=== PATIENT | female | born 1985 | race Caucasian/White ===

== ENCOUNTER 2024-02-23 13:06 | Observation (INO) | payer OTHER ==
--- NOTE | 2024-02-23 13:23 | ED ---
General Adult HPI - General Chief complaint: Overdose Stated complaint: overdose Time Seen by Provider: 02/23/24 13:10 Source: patient, EMS, RN notes reviewed, old records reviewed Mode of arrival: EMS Limitations: altered mental status - History of Present Illness Initial comments: This is a 39-year-old female who presents to the emergency department stating she took a Klonopin 0.5 mg because she was anxious going to rehab. Patient states she is going to rehab for rehabilitation on benzos and Adderall patient states she was not trying to commit suicide she is not depressed and she does not want to hurt herself. Patient states she was just anxious show she kept taking Klonopin on the bus ride to [place] patient states that was at about 2 hours ago patient denies any drinking today patient denies any other drug use. Patient Nuys chest pain palpitations difficulty breathing or shortness of breath. Patient Nuys any abdominal pain patient has nausea vomiting diarrhea. Patient Nuys any headache. Patient states she just extremely tired - Related Data Home Medications Medication Instructions Recorded Confirmed Benztropine Mesylate [Cogentin] 0.5 mg PO BID 02/23/24 02/23/24 DULoxetine HCL [Cymbalta] 30 mg PO DAILY 02/23/24 02/23/24 DULoxetine HCL [Cymbalta] 60 mg PO HS 02/23/24 02/23/24 Ferrous Sulfate [Feosol] 325 mg PO DAILY 02/23/24 02/23/24 Gabapentin [Gralise] 600 mg PO TID 02/23/24 02/23/24 Nicotine 21Mg/24Hr Patch [Habitrol] 1 patch TRANSDERM DAILY 02/23/24 02/23/24 QUEtiapine FUMARATE [SEROquel] 600 mg PO HS 02/23/24 02/23/24 Semaglutide [Wegovy] 0.25 mg SQ Q7D 02/23/24 02/23/24 cloNIDine HCL [Catapres] 0.1 mg PO TID 02/23/24 02/23/24 clonazePAM [KlonoPIN] 0.5 mg PO TID PRN 02/23/24 02/23/24 hydrOXYzine pamoate [Vistaril] 25 mg PO Q8H PRN 02/23/24 02/23/24 Allergies Allergy/AdvReac Type Severity Reaction Status Date / Time No Known Allergies Allergy Verified 02/23/24 15:26 Review of Systems ROS Statement: Those systems with pertinent positive or pertinent negative responses have been documented in the HPI. ROS Other: All systems not noted in ROS Statement are negative. Past Medical History Past Medical History: Unable to Obtain Past Surgical History: Unable to Obtain Past Psychological History: Unable to Obtain Smoking Status: Vaper Past Alcohol Use History: Abuse, Heavy Past Drug Use History: Prescription Drug Abuse General Exam - General Exam Comments Initial Comments: GENERAL: Patient is well-developed and well-nourished. Patient is nontoxic and well- hydrated and is in no acute distress. Patient is very tired but easily arousable ENT: Neck is soft and supple. No significant lymphadenopathy is noted. Oropharynx is clear. Moist mucous membranes. Neck has full range of motion without eliciting any pain. EYES: The sclera were anicteric and conjunctiva were pink and moist. Extraocular movements were intact and pupils were equal round and reactive to light. Eyelids were unremarkable. PULMONARY: Unlabored respirations. Good breath sounds bilaterally. No audible rales rhonchi or wheezing was noted. CARDIOVASCULAR: There is a regular rate and rhythm without any murmurs gallops or rubs. ABDOMEN: Soft and nontender with normal bowel sounds. SKIN: Skin is clear with no lesions or rashes and otherwise unremarkable. NEUROLOGIC: Patient is alert and oriented x3. Cranial nerves II through XII are grossly intact. Motor and sensory are also intact. Normal speech, volume and content. Symmetrical smile. MUSCULOSKELETAL: Normal extremities with adequate strength and full range of motion. LYMPHATICS: No significant lymphadenopathy is noted PSYCHIATRIC: Normal psychiatric evaluation. Denies suicidal homicidal ideations Limitations: altered mental status Course Vital Signs 02/23/24 13:08 Temperature 97.5 F L Pulse Rate 72 Respiratory 17 Rate Blood Pressure 150/80 O2 Sat by Pulse 97 Oximetry Medical Decision Making - Medical Decision Making Was pt. sent in by a medical professional or institution (, JAMAL, MANUFACTURING TEACHER, urgent care, hospital, or fci...) When possible be specific @ -Patient was sent in by [facility] Did you speak to anyone other than the patient for history (EMS, parent, family, police, friend...)? What history was obtained from this source @ -No Did you review nursing and triage notes (agree or disagree)? Why? @ -I reviewed and agree with nursing and triage notes Were old charts reviewed (outside hosp., previous admission, EMS record, old EKG, old radiological studies, urgent care reports/EKG's, fci records)? Report findings @ -No old charts were reviewed Differential Diagnosis? @ -Klonopin overdose, methadone overdose, unknown overdose, this is not an all- inclusive list EKG interpreted by me (3pts min.). @ -As above X-rays interpreted by me (1pt min.). @ -None done CT interpreted by me (1pt min.). @ -None done U/S interpreted by me (1pt. min.). @ -None done What testing was considered but not performed or refused? (CT, X-rays, U/S, labs)? Why? @ -None What meds were considered but not given or refused? Why? @ -None Did you discuss the management of the patient with other professionals (professionals i.e. , PA, MANUFACTURING TEACHER, lab, RT, psych nurse, high school social science teacher, metal patternmaker, teacher, supply officer, human services case manager)? Give summary @ -Spoke with sound physicians they agreed to admit the patient admit the patient wrote admitting orders Was smoking cessation discussed for >3mins.? @ -No Was critical care preformed (if so, how long)? @ -No Were there social determinants of health that impacted care today? How? (Homelessness, low income, unemployed, alcoholism, drug addiction, transportation, low edu. Level, literacy, decrease access to med. care, fci, rehab)? @ -No Was there de-escalation of care discussed even if they declined (Discuss DNR or withdrawal of care, Hospice)? DNR status @ -No What co-morbidities impacted this encounter? (DM, HTN, Smoking, COPD, CAD, Cancer, CVA, ARF, Chemo, Hep., AIDS, mental health diagnosis, sleep apnea, morbid obesity)? @ -None Was patient admitted / discharged? Hospital course, mention meds given and route, prescriptions, significant lab abnormalities, going to OR and other pertinent info. @ -Patient's drug screen came back clean of amphetamines and benzos which she states is the reason she was going to rehab. Patient had methadone on board which she now admits to having methadone every morning but she denies abusing it. Patient states she took 8.5 mg Klonopin prior to her arrival at [facility]. [facility] does not want the patient coming back to their facility. Patient denies any suicidal ideations Undiagnosed new problem with uncertain prognosis? @ -No Drug Therapy requiring intensive monitoring for toxicity (Heparin, Nitro, Insulin, Cardizem)? @ -No Were any procedures done? @ -No Diagnosis/symptom? @ -Overdose Klonopin Acute, or Chronic, or Acute on Chronic? @ -Acute Uncomplicated (without systemic symptoms) or Complicated (systemic symptoms)? @ -Complicated Side effects of treatment? @ -No Exacerbation, Progression, or Severe Exacerbation? @ -No Poses a threat to life or bodily function? How? (Chest pain, [place], [place], pneumonia, PE, COPD, DKA, ARF, appy, cholecystitis, CVA, Diverticulitis, Homicidal, Suicidal, threat to staff... and all critical care pts) @ -This could lead to hypoxia and endorgan dysfunction - Lab Data Lab Results 02/23/24 Range/Units 13:34 Urine Opiates Screen Not Detected (NotDetected) Ur Oxycodone Screen Not Detected (NotDetected) Urine Methadone Screen Detected H (NotDetected) Ur Barbiturates Screen Not Detected (NotDetected) U Tricyclic Antidepress Detected H (NotDetected) Ur Phencyclidine Scrn Not Detected (NotDetected) Ur Amphetamines Screen Not Detected (NotDetected) U Methamphetamines Scrn Not Detected (NotDetected) U Benzodiazepines Scrn Not Detected (NotDetected) Urine Cocaine Screen Not Detected (NotDetected) U Marijuana (THC) Screen Not Detected (NotDetected) Disposition Clinical Impression: Benzodiazepine overdose Disposition: ADMITTED IP TO THIS HOSP Referrals: None,Stated [REFERRING] - 1-2 days Time of Disposition: 15:35
[2024-02-23 13:53] LABS: Amphetamine Screen,Urine Not Detected (NotDetected); Barbiturate Screen,Urine Not Detected (NotDetected); Benzodiazepines Screen,Urine Not Detected (NotDetected); Cocaine Screen,Urine Not Detected (NotDetected); Methadone Screen, Urine Detected (NotDetected); Opiate Screen,Urine Not Detected (NotDetected); Oxycodone Screen, Urine Not Detected (NotDetected); Phencyclidine Screen,Urine Not Detected (NotDetected); Tricyclic Antidepressant,Urine Detected (NotDetected); Urn Cannabinoid Scrn Not Detected (NotDetected)
[2024-02-23] MEDS: SODIUM CHLORIDE 0.9% 1,000 ML IV ONE (16:05)
[2024-02-23] MEDS ORDERED: NALOXONE 0.4 MG/ML 1 ML VIAL IVP PRN (16:37)
--- NOTE | 2024-02-23 16:46 | P.HPIM ---
History of Present Illness H&P Date: 02/23/24 Patient is a 39-year-old female with past medical history of polysubstance abuse who presents to the emergency room after claiming to take 8 tabs of Klonopin 0.5 mg before going to [facility]. Patient reported that she took them due to anxiety. Patient currently is somnolent and lethargic so history taken from her chart. Patient was going to rehab due to benzodiazepine and Adderall addiction. Patient was not trying to commit suicide and is also not depressed and does not want to hurt herself. Patient denied drinking any alcohol. In the ED patient UDS was positive for methadone and TCA. Patient in the ED has respiratory rate around 10 and occasionally pulse ox dips down into the 80s. I did tell the nurse to put the patient on O2 supplement. ROS: 10 ROS reviewed and are negative except as noted in HPI Physical exam General: [Patient currently lethargic and somnolent and difficult to arouse]. HENT: [Normocephalic, clear tympanic membranes, normal hearing, moist oral mucosa, no scleral icterus, no sinus tenderness]. Neck: [Supple, non-tender, no carotid bruits, no JVD, no lymphadenopathy]. Lungs: [Clear to auscultation and percussion, non-labored respiration]. Heart: [Normal rate, regular rhythm, no murmur, gallop or edema]. Abdomen: [Soft, non-tender, non-distended, normal bowel sounds, no masses, morbidly obese]. Musculoskeletal: [Normal range of motion and strength, no tenderness or swelling]. Neurologic: Unable to assess due to lethargy Psychiatric: Unable to assess due to lethargy Assessment and plan Acute encephalopathy secondary to polypharmacy Suspect methadone overdose Patient claims she overdosed on Klonopin however UDS negative for benzodiazepine Patient's UDS was positive for methadone and not benzodiazepine. Will order Narcan if patient unable to protect her airway Will continue to monitor patient Anticipate patient mental status will improve by the morning and she will be stable for discharge I was told by the ED provider that [facility] is not willing to take the patient back tonight. Hold off on all her home sedating medications which include topiramate, Seroquel, gabapentin, Cymbalta, clonazepam, Cogentin Check stat labs with CBC and BMP Continue normal saline at 75 cc an hour [facility] Obesity Patient on Wegovy suspect she was taking this for weight loss Psych disorder Hold her meds for now. See above DVT prophylaxis: SCDs and encourage early ambulation Past Medical History Past Medical History: Unable to Obtain Past Surgical History: Unable to Obtain Past Psychological History: Unable to Obtain Smoking Status: Vaper Past Alcohol Use History: Abuse, Heavy Past Drug Use History: Prescription Drug Abuse Medications and Allergies Home Medications Medication Instructions Recorded Confirmed Type Benztropine Mesylate [Cogentin] 0.5 mg PO BID 02/23/24 02/23/24 History DULoxetine HCL [Cymbalta] 30 mg PO DAILY 02/23/24 02/23/24 History DULoxetine HCL [Cymbalta] 60 mg PO HS 02/23/24 02/23/24 History Ferrous Sulfate [Feosol] 325 mg PO DAILY 02/23/24 02/23/24 History Gabapentin [Gralise] 600 mg PO TID 02/23/24 02/23/24 History Nicotine 21Mg/24Hr Patch [Habitrol] 1 patch TRANSDERM DAILY 02/23/24 02/23/24 History QUEtiapine FUMARATE [SEROquel] 600 mg PO HS 02/23/24 02/23/24 History Semaglutide [Wegovy] 0.25 mg SQ Q7D 02/23/24 02/23/24 History Topiramate [Topamax] 100 mg PO BID 02/23/24 02/23/24 History cloNIDine HCL [Catapres] 0.1 mg PO TID 02/23/24 02/23/24 History clonazePAM [KlonoPIN] 0.5 mg PO TID PRN 02/23/24 02/23/24 History hydrOXYzine pamoate [Vistaril] 25 mg PO Q8H PRN 02/23/24 02/23/24 History Allergies Allergy/AdvReac Type Severity Reaction Status Date / Time No Known Allergies Allergy Verified 02/23/24 15:26 Physical Exam Osteopathic Statement: *. No significant issues noted on an osteopathic structural exam other than those noted in the History and Physical/Consult. Vitals: Vital Signs Temp Pulse Resp BP Pulse Ox 02/23/24 16:00 85 10 L 121/85 97 02/23/24 15:35 82 10 L 112/75 86 L 02/23/24 13:08 97.5 F L 72 17 150/80 97 Intake and Output 02/23/24 02/23/24 02/23/24 06:59 14:59 22:59 Other: Weight 90.718 kg Results Labs: Abnormal Lab Results - Last 24 Hours (Table) 02/23/24 Range/Units 13:34 Urine Methadone Screen Detected H (NotDetected) U Tricyclic Antidepress Detected H (NotDetected)
[2024-02-23 17:04] LABS: Anisocytosis Slight; HCT 33.9 % (34.0-46.0); Hypochromasia Slight; MCH 27.7 pg (25.0-35.0); MCHC 32.4 g/dL (31.0-37.0); MCV 85.6 fL (80.0-100.0); Mean Platelet Volume 7.1; Platelet Count 306 k/uL (150-450); RBC 3.96 m/uL (3.80-5.40); RDW 16.7 % (11.5-15.5); WBC 7.5 k/uL (3.8-10.6)
[2024-02-23 17:11] LABS: African American GFR (CKD) 69 (>60 ml/min/1.73 sqM); Anion Gap 7 mmol/L; Blood Urea Nitrogen 17 mg/dL (7-17); Calcium 9.1 mg/dL (8.4-10.2); Carbon Dioxide 26 mmol/L (22-30); Chloride 106 mmol/L (98-107); Glucose 123 mg/dL (74-99); Non-African American GFR(CKD) 60 (>60 ml/min/1.73 sqM); Sodium 139 mmol/L (137-145)
[2024-02-24 08:20] VITALS: RESP 18
[2024-02-24 08:53] LABS: Basophils # (A) 0.04 X 10*3/uL (0.00-0.10); Basophils % (A) 0.6 %; Eosinophils # (A) 0.35 X 10*3/uL (0.04-0.35); HCT 33.3 % (37.2-46.3); HGB 10.4 g/dL (12.0-15.0); Lymphocytes # (A) 1.84 X 10*3/uL (0.90-5.00); Lymphocytes % (A) 26.5 %; MCH 27.1 pg (27.0-32.0); MCHC 31.2 g/dL (32.0-37.0); MCV 86.7 FL (80.0-97.0); Monocytes # (A) 0.54 X 10*3/uL (0.20-1.00); Monocytes % (A) 7.8 %; NRBC Per 100 WBC 0 X 10*3/uL (0.00-0.01); Neutrophils # (A) 4.15 X 10*3/uL (1.80-7.70); Neutrophils % (A) 59.8 %; Platelet Count 316 X 10*3/uL (140-440); RBC 3.84 X 10*6/uL (4.10-5.20); WBC 6.94 X 10*3/uL (4.50-10.00)
[2024-02-24 09:32] LABS: BUN/Creat Ratio 16.45 Ratio (12.00-20.00); Blood Urea Nitrogen 18.1 mg/dL (9.0-27.0); Calcium 8.6 mg/dL (8.7-10.3); Carbon Dioxide 24.5 mmol/L (21.6-31.8); Chloride 109 mmol/L (96-109); Glucose 81 mg/dL (70-110); Potassium 4.3 mmol/L (3.5-5.5); Sodium 141 mmol/L (135-145)
[2024-02-24] MEDS: TOPIRAMATE 100 MG TAB PO SCH (09:56)
[2024-02-24] MEDS: FERROUS SULFATE 325 MG TAB PO SCH (09:56)
[2024-02-24] MEDS: cloNIDine HCL 0.1 MG TAB PO SCH (09:56)
[2024-02-24] MEDS: NICOTINE 21MG/24HR PATCH TRANSDERM SCH (09:56)
[2024-02-24] MEDS: GABAPENTIN 300 MG CAP PO SCH (09:56)
[2024-02-24] MEDS: DULoxetine HCL 30 MG CAPSULE.DR PO SCH (09:56)
[2024-02-24] MEDS: BENZTROPINE MESYLATE 0.5 MG TAB PO SCH (09:57)
[2024-02-24] MEDS: METHADONE 10 MG TAB PO SCH (12:06)
[2024-02-24] MEDS: METHADONE 5 MG TAB PO SCH (12:08)
--- NOTE | 2024-02-24 14:38 | P.DS ---
Providers Date of admission: 02/23/24 15:37 Expected date of discharge: 02/24/24 Attending physician: Joselito Chou MD Consults: 02/24/24 10:10 Consult Physician Urgent Consulting Provider: De Childs Consult Reason/Comments: overdose of KLONOPIN, PT NEEDS PSYCH EVAL TO GO TO [facility] Do you want consulting provider notified?: Yes Primary care physician: Physician Nonstaff Hospital Course: Acute encephalopathy secondary to polypharmacy Chronic Narcotic Dependence, on methadone Patient claims she overdosed on Klonopin however UDS negative for benzodiazepine Obesity Psych disorder Patient is a 39-year-old female with past medical history of polysubstance abuse who presents to the emergency room after claiming to take 8 tabs of Klonopin 0.5 mg before going to [facility]. In the ED patient UDS was positive for methadone and TCA. Patient in the ED has respiratory rate around 10 and occasionally pulse ox dipped down into the 80s. Patient recovered well with observation admission and close monitoring. She was seen and cleared by psychiatry to return to rehab. Patient was subsequently discharged with instructions to follow-up with [facility] on Tuesday when they could take patient back. Unfortunately, they claimed they could not take the patient back over the weekend. Gen: In NAD, non-toxic HEENT: normocephalic, atraumatic, hearing acuity is intant, mucous membranes moist CVS: perfusing all extremities well, no pitting edema, Respiratory: symmetric chest expansion, no accessory muscle use, GI: soft, NTTP, ND, : no suprapubic tenderness, no CVA tenderness MSK/Derm: no rashes, cyanosis Neuro: CN II-XII intact, no motor weakness, Psych: cooperative, euthymic mood, judgment and insight is intact I spent 34 minutes coordinating this discharge Patient Condition at Discharge: Good Plan - Discharge Summary New Discharge Prescriptions: Continue Semaglutide [Wegovy] 0.25 mg SQ Q7D hydrOXYzine pamoate [Vistaril] 25 mg PO Q8H PRN PRN Reason: SLEEP OR ANXIETY Nicotine 21Mg/24Hr Patch [Habitrol] 1 patch TRANSDERM DAILY Gabapentin [Gralise] 600 mg PO TID DULoxetine HCL [Cymbalta] 60 mg PO HS DULoxetine HCL [Cymbalta] 30 mg PO DAILY Benztropine Mesylate [Cogentin] 0.5 mg PO BID Methadone HCl [Methadone Intensol] 155 mg PO DAILY QUEtiapine FUMARATE [SEROquel] 600 mg PO HS Ferrous Sulfate [Iron (65 MG Elemental)] 325 mg PO DAILY cloNIDine HCL [Catapres] 0.1 mg PO TID Topiramate [Topamax] 100 mg PO BID Discontinued clonazePAM [KlonoPIN] 0.5 mg PO TID PRN PRN Reason: Anxiety Discharge Medication List Benztropine Mesylate [Cogentin] 0.5 mg PO BID 02/23/24 [History] DULoxetine HCL [Cymbalta] 30 mg PO DAILY 02/23/24 [History] DULoxetine HCL [Cymbalta] 60 mg PO HS 02/23/24 [History] Ferrous Sulfate [Iron (65 MG Elemental)] 325 mg PO DAILY 02/23/24 [History] Gabapentin [Gralise] 600 mg PO TID 02/23/24 [History] Nicotine 21Mg/24Hr Patch [Habitrol] 1 patch TRANSDERM DAILY 02/23/24 [History] QUEtiapine FUMARATE [SEROquel] 600 mg PO HS 02/23/24 [History] Semaglutide [Wegovy] 0.25 mg SQ Q7D 02/23/24 [History] Topiramate [Topamax] 100 mg PO BID 02/23/24 [History] cloNIDine HCL [Catapres] 0.1 mg PO TID 02/23/24 [History] hydrOXYzine pamoate [Vistaril] 25 mg PO Q8H PRN 02/23/24 [History] Methadone HCl [Methadone Intensol] 155 mg PO DAILY 02/24/24 [History] Follow up Appointment(s)/Referral(s): None,Stated [REFERRING] - 1-2 days Discharge Disposition: OTHER INSTITUTION NOT DEFINED
[2024-02-24 14:51] VITALS: BP 129/81; TEMP 98.2
--- NOTE | 2024-02-24 14:56 | P.CN ---
Psychiatric Consult - . Consult date: 02/24/24 Consult:: 02/24/24 14:53 CONSULTATION identifying Data: The patient is a 39-year-old, single female, who lives in [place], [place]. History of present illness: As per patient she came to the emergency department after taking more than prescribed Klonopin for anxiety. She was going to the [facility]. The patient noted that she is addicted to Klonopin and Adderall. She gets Adderall on the street. The patient noted that she was admitted to [facility] 2 weeks ago under similar conditions. She noted that she took more than prescribed Klonopin and ended up in a psychiatric hospital. She stated that was an accidental overdose. She states being addicted to Klonopin and abuses it. She wants to get off this medication and Adderall. She wants to go to rehab, so she can get off these drugs. She noted that she does not feel depressed. She denied being sad, feeling guilty, worthless, hopeless, suicidal, or homicidal. She noted that she is taking all her prescribed medications. As per patient Cymbalta helps her depression and Invega helps her voices. She noted that she took her Invega 234 mg 2 weeks ago. She gets sad and tearful thinking about that she may be denied bed at [facility]. On leading questions denied depression, anxiety, hopelessness, worthlessness, suicidal or homicidal ideations. The patient denied symptoms of paranoia, or any other delusional thinking, A/V hallucinations. Out-pt follow-up: The patient goes to [facility]. History of past psychiatric illness: The patient noted that her first admission to psychiatric hospital was 10 years ago for Post Depression. Her second admission was in July, hearing voices. As per patient she has been hearing voices for a year. Her third admission was to [facility]. No other than stated in HPI. As per patient, she has no history of suicidal or homicidal ideations or behavior. The patient goes to [facility] for out-pt follow-up. Past medical history: None significant Substance abuse history: Opioids, Adderall, Klonopin. MSE: Alert and attentive Orientation X3. Pleasant and cooperative. Psychomotor activity: normal. Speech: Normal tone, quality, and quantity Mood: I am fine. Affect: Consistent with mood. SI or HI: None Thought content: Normal Thought process: Normal Perceptual disturbance: Normal Cognition: Intact Judgement and Insight: Intact Diagnosis: Polysubstance Abuse, H/O depression Rec: The patient does not meet in-patient criteria for psychiatric admission. Medication recommendations: Continue current medications The patient will benefit by going to Rehab program. Will sign off the case.
[2024-02-24 15:31] VITALS: PULSE 108
[2024-02-24] MEDS ORDERED: QUEtiapine 200 MG TAB PO SCH (21:00)
[2024-02-24] MEDS ORDERED: DULoxetine HCL 60 MG CAPSULE.DR PO SCH (21:00)
== END 2024-02-24 15:51 | disposition home or self-care (01) ==
LOC: EC 13:06 → 6NMEDSUR 15:37
PROVIDERS: ADMIT Internal Medicine; ATTEND Internal Medicine
DX: T42.4X1A Poisoning by benzodiazepines, accidental (unintentional), initial encounter (principal); G92.8 Other toxic encephalopathy; F11.20 Opioid dependence, uncomplicated; F15.20 Other stimulant dependence, uncomplicated; F13.20 Sedative, hypnotic or anxiolytic dependence, uncomplicated; F32.A Depression, unspecified; R44.0 Auditory hallucinations; F41.9 Anxiety disorder, unspecified; Z68.33 Body mass index [BMI] 33.0-33.9, adult; E66.9 Obesity, unspecified; F17.290 Nicotine dependence, other tobacco product, uncomplicated; Z79.899 Other long term (current) drug therapy; Z87.59 Personal history of other complications of pregnancy, childbirth and the puerperium
CPT/HCPCS: 80048; 80306; 85025; 85027; 96360; 96361; 96365; 99285

== ENCOUNTER 2024-02-29 17:32 | Observation (INO) | payer OTHER ==
--- NOTE | 2024-02-29 18:26 | ED ---
Overdose HPI - General Chief Complaint: Overdose Stated Complaint: Over Medicated Time Seen by Provider: 02/29/24 18:23 Source: patient, EMS, RN notes reviewed Mode of arrival: EMS - History of Present Illness Initial Comments: 39-year-old female presenting from [place] for overdose. Facility is suspecting patient is taking too much Klonopin and gabapentin. Patient admits to taking 1 mg of Klonopin at 8 AM this morning, states she also took "too much" of her gabapentin but does not know how much. Patient denies suicidal ideation, does not want to harm herself. Patient denies chest pain, shortness of breath, palpitations. Patient was recently admitted for benzodiazepine overdose 1 week ago. Denies taking any other drugs. - Related Data Home Medications Medication Instructions Recorded Confirmed Benztropine Mesylate [Cogentin] 0.5 mg PO BID 02/23/24 02/23/24 DULoxetine HCL [Cymbalta] 30 mg PO DAILY 02/23/24 02/23/24 DULoxetine HCL [Cymbalta] 60 mg PO HS 02/23/24 02/23/24 Ferrous Sulfate [Iron (65 MG 325 mg PO DAILY 02/23/24 02/23/24 Elemental)] Gabapentin [Gralise] 600 mg PO TID 02/23/24 02/23/24 Nicotine 21Mg/24Hr Patch [Habitrol] 1 patch TRANSDERM DAILY 02/23/24 02/23/24 QUEtiapine FUMARATE [SEROquel] 600 mg PO HS 02/23/24 02/23/24 Semaglutide [Wegovy] 0.25 mg SQ Q7D 02/23/24 02/23/24 Topiramate [Topamax] 100 mg PO BID 02/23/24 02/23/24 cloNIDine HCL [Catapres] 0.1 mg PO TID 02/23/24 02/23/24 hydrOXYzine pamoate [Vistaril] 25 mg PO Q8H PRN 02/23/24 02/23/24 Methadone HCl [Methadone Intensol] 155 mg PO DAILY 02/24/24 02/24/24 Allergies Allergy/AdvReac Type Severity Reaction Status Date / Time codeine Allergy Anaphylaxis Verified 02/29/24 17:45 guaifenesin [From Mucinex] AdvReac Nausea & Verified 02/29/24 17:45 Vomiting & Diarrhea tramadol AdvReac Nausea & Verified 02/29/24 17:45 Vomiting & Diarrhea Review of Systems ROS Statement: Those systems with pertinent positive or pertinent negative responses have been documented in the HPI. ROS Other: All systems not noted in ROS Statement are negative. Past Medical History Past Medical History: Seizure Disorder History of Any Multi-Drug Resistant Organisms: None Reported Past Surgical History: Section Past Psychological History: ADD/ADHD, Anxiety, Bipolar, Depression, Panic Disorder, PTSD Smoking Status: Former smoker Past Alcohol Use History: Abuse, Heavy Past Drug Use History: Methamphetamine, Prescription Drug Abuse - Past Family History Mother Family Medical History: No Reported History Father Family Medical History: Diabetes Mellitus Additional Family Medical History / Comment(s): depression General Exam General appearance: lethargic Head exam: Present: atraumatic, normocephalic, normal inspection Eye exam: Present: EOMI. Absent: normal appearance (Pupils fixed in dilation), scleral icterus, conjunctival injection, periorbital swelling ENT exam: Present: normal exam, mucous membranes moist Respiratory exam: Present: normal lung sounds bilaterally. Absent: respiratory distress, wheezes, rales, rhonchi, stridor Cardiovascular Exam: Present: regular rate, normal rhythm, normal heart sounds. Absent: systolic murmur, diastolic murmur, rubs, gallop, clicks Neurological exam: Present: alert, oriented X3, CN II-XII intact Psychiatric exam: Present: normal affect, normal mood Skin exam: Present: warm, dry, intact, normal color. Absent: rash Course Vital Signs 02/29/24 17:38 Temperature 99.5 F Pulse Rate 102 H Respiratory 12 Rate Blood Pressure 114/78 O2 Sat by Pulse 93 L Oximetry Medical Decision Making - Medical Decision Making Was pt. sent in by a medical professional or institution (, PA, TECHNOLOGY ADVISOR, urgent care, hospital, or [facility]...) When possible be specific @ -Sent by [place] for overdose Did you speak to anyone other than the patient for history (EMS, parent, family, police, friend...)? What history was obtained from this source @ -No Did you review nursing and triage notes (agree or disagree)? Why? @ -I reviewed and agree with nursing and triage notes Were old charts reviewed (outside hosp., previous admission, EMS record, old EKG, old radiological studies, urgent care reports/EKG's, [facility] records)? Report findings @ -Previous admission charts reviewed Differential Diagnosis (chest pain, altered mental status, abdominal pain women, abdominal pain men, vaginal bleeding, weakness, fever, dyspnea, syncope, headache, dizziness, GI bleed, back pain, seizure, CVA, palpatations, mental health, musculoskeletal)? @ -Differential Altered Mental Status: Hypoglycemia, DKA, hypercapnia, ETOH, overdose, CO poisoning, trauma, myxedema coma, HTN encephalopathy, infection, encephalitis, psychosis, intercranial hemorrhage, hepatic encephalopathy, meningitis, CVA, this is not meant to be an all-inclusive list EKG interpreted by me (3pts min.). @ -As above X-rays interpreted by me (1pt min.). @ -None done CT interpreted by me (1pt min.). @ -None done U/S interpreted by me (1pt. min.). @ -None done What testing was considered but not performed or refused? (CT, X-rays, U/S, labs)? Why? @ -None What meds were considered but not given or refused? Why? @ -None Did you discuss the management of the patient with other professionals (professionals i.e. , PA, TECHNOLOGY ADVISOR, lab, RT, psych nurse, social worker masters, import dispatcher, teacher, loan officer assistant, casework supervisor)? Give summary @ -I spoke with Dr. Chang who accepts admission at this time for overdose Was smoking cessation discussed for >3mins.? @ -No Was critical care preformed (if so, how long)? @ -No Were there social determinants of health that impacted care today? How? (Homelessness, low income, unemployed, alcoholism, drug addiction, transportation, low edu. Level, literacy, decrease access to med. care, long-term, rehab)? @ -No Was there de-escalation of care discussed even if they declined (Discuss DNR or withdrawal of care, Hospice)? DNR status @ -No What co-morbidities impacted this encounter? (DM, HTN, Smoking, COPD, CAD, Cancer, CVA, ARF, Chemo, Hep., AIDS, mental health diagnosis, sleep apnea, morbid obesity)? @ -None Was patient admitted / discharged? Hospital course, mention meds given and route, prescriptions, significant lab abnormalities, going to OR and other pertinent info. @ -Patient was admitted. This is a 39-year-old female sent from [place] for possible overdose. They suspect she has been overdosing on Klonopin and gabapentin. Vital signs remarkable for mild tachycardia, otherwise unremarkable. On examination patient is altered, lethargic, responsive only to sternal rubs. Pupils fixed and dilation. Urine positive for methadone and tricyclic antidepressants. Negative for benzodiazepine. EKG normal sinus rhythm no ST changes. Laboratory studies including CBC and CMP unremarkable. I spoke with Dr. Chang who accepts admission at this time for overdose. Case discussed with my ED attending Dr. Smith. Undiagnosed new problem with uncertain prognosis? @ -No Drug Therapy requiring intensive monitoring for toxicity (Heparin, Nitro, Insulin, Cardizem)? @ -No Were any procedures done? @ -No Diagnosis/symptom? @ -Overdose Acute, or Chronic, or Acute on Chronic? @ -Acute Uncomplicated (without systemic symptoms) or Complicated (systemic symptoms)? @ -Complicated Side effects of treatment? @ -No Exacerbation, Progression, or Severe Exacerbation? @ -No Poses a threat to life or bodily function? How? (Chest pain, USA, MD, pneumonia, PE, COPD, DKA, ARF, appy, cholecystitis, CVA, Diverticulitis, Homicidal, Suicidal, threat to staff... and all critical care pts) @ -Yes - Lab Data Result diagrams: 02/29/24 18:59 02/29/24 18:59 Lab Results 02/29/24 02/29/24 02/29/24 Range/Units 18:59 18:59 19:23 WBC 10.3 (3.8-10.6) k/uL RBC 3.56 L (3.80-5.40) m/uL Hgb 9.7 L (11.4-16.0) gm/dL Hct 31.0 L (34.0-46.0) % MCV 87.1 (80.0-100.0) fL MCH 27.3 (25.0-35.0) pg MCHC 31.3 (31.0-37.0) g/dL RDW 16.7 H (11.5-15.5) % Plt Count 278 (150-450) k/uL MPV 7.4 Neutrophils % 77 % Lymphocytes % 16 % Monocytes % 5 % Eosinophils % 1 % Basophils % 0 % Neutrophils # 7.9 H (1.3-7.7) k/uL Lymphocytes # 1.7 (1.0-4.8) k/uL Monocytes # 0.5 (0-1.0) k/uL Eosinophils # 0.1 (0-0.7) k/uL Basophils # 0.0 (0-0.2) k/uL Hypochromasia Slight Anisocytosis Slight Sodium 136 L (137-145) mmol/L Potassium 3.6 (3.5-5.1) mmol/L Chloride 103 (98-107) mmol/L Carbon Dioxide 24 (22-30) mmol/L Anion Gap 9 mmol/L BUN 16 (7-17) mg/dL Creatinine 1.10 H (0.52-1.04) mg/dL Est GFR (CKD-EPI)AfAm 74 (>60 ml/min/1.73 sqM) Est GFR (CKD-EPI)NonAf 64 (>60 ml/min/1.73 sqM) Glucose 93 (74-99) mg/dL Calcium 8.6 (8.4-10.2) mg/dL Total Bilirubin 0.7 (0.2-1.3) mg/dL AST 72 H (14-36) U/L ALT 36 H (4-34) U/L Alkaline Phosphatase 71 (38-126) U/L Total Protein 6.4 (6.3-8.2) g/dL Albumin 3.4 L (3.5-5.0) g/dL Urine Opiates Screen Not Detected (NotDetected) Ur Oxycodone Screen Not Detected (NotDetected) Urine Methadone Screen Detected H (NotDetected) Ur Barbiturates Screen Not Detected (NotDetected) U Tricyclic Antidepress Detected H (NotDetected) Ur Phencyclidine Scrn Not Detected (NotDetected) Ur Amphetamines Screen Not Detected (NotDetected) U Methamphetamines Scrn Not Detected (NotDetected) U Benzodiazepines Scrn Not Detected (NotDetected) Urine Cocaine Screen Not Detected (NotDetected) U Marijuana (THC) Screen Not Detected (NotDetected) - EKG Data -: EKG Interpreted by Ri EKG Comments: EKG reveals normal sinus rhythm with no ST changes. Ventricular rate 77 bpm, NH interval 161, QRS duration 80, QT/QTc 418/450 Disposition Clinical Impression: Overdose Disposition: ADMITTED IP TO THIS HOSP Referrals: None,Stated [Primary Care Provider] - 1-2 days Time of Disposition: 21:14
[2024-02-29 19:13] LABS: Anisocytosis Slight; Basophils % (A) 0 %; Eosinophils # (A) 0.1 k/uL (0-0.7); Eosinophils % (A) 1 %; HGB 9.7 gm/dL (11.4-16.0); Hypochromasia Slight; Lymphocytes # (A) 1.7 k/uL (1.0-4.8); Lymphocytes % (A) 16 %; MCH 27.3 pg (25.0-35.0); MCHC 31.3 g/dL (31.0-37.0); MCV 87.1 fL (80.0-100.0); Mean Platelet Volume 7.4; Monocytes # (A) 0.5 k/uL (0-1.0); Monocytes % (A) 5 %; Neutrophils # (A) 7.9 k/uL (1.3-7.7); Neutrophils % (A) 77 %; Platelet Count 278 k/uL (150-450); RBC 3.56 m/uL (3.80-5.40); RDW 16.7 % (11.5-15.5); WBC 10.3 k/uL (3.8-10.6)
[2024-02-29 19:28] LABS: ALT 36 U/L (4-34); AST 72 U/L (14-36); African American GFR (CKD) 74 (>60 ml/min/1.73 sqM); Albumin 3.4 g/dL (3.5-5.0); Alkaline Phosphatase 71 U/L (38-126); Anion Gap 9 mmol/L; Blood Urea Nitrogen 16 mg/dL (7-17); Calcium 8.6 mg/dL (8.4-10.2); Carbon Dioxide 24 mmol/L (22-30); Chloride 103 mmol/L (98-107); Glucose 93 mg/dL (74-99); Non-African American GFR(CKD) 64 (>60 ml/min/1.73 sqM); Potassium 3.6 mmol/L (3.5-5.1); Sodium 136 mmol/L (137-145); Total Bilirubin 0.7 mg/dL (0.2-1.3); Total Protein 6.4 g/dL (6.3-8.2)
[2024-02-29 19:54] LABS: Amphetamine Screen,Urine Not Detected (NotDetected); Barbiturate Screen,Urine Not Detected (NotDetected); Benzodiazepines Screen,Urine Not Detected (NotDetected); Cocaine Screen,Urine Not Detected (NotDetected); Methadone Screen, Urine Detected (NotDetected); Opiate Screen,Urine Not Detected (NotDetected); Oxycodone Screen, Urine Not Detected (NotDetected); Phencyclidine Screen,Urine Not Detected (NotDetected); Tricyclic Antidepressant,Urine Detected (NotDetected); Urn Cannabinoid Scrn Not Detected (NotDetected)
[2024-02-29] MEDS ORDERED: ACETAMINOPHEN TAB 325 MG TAB PO PRN (21:08)
[2024-02-29] MEDS ORDERED: NALOXONE 0.4 MG/ML 1 ML VIAL IV PRN (21:08)
--- NOTE | 2024-02-29 22:27 | P.HPIM ---
History of Present Illness H&P Date: 02/29/24 Patient is a 39-year-old female with a PMH of seizure disorder, anxiety, depression, panic disorder, neuropathy presents to the ED for overdose. She is a patient at [facility]. She states this morning that she took too much of Klonopin and gabapentin and is not sure how much. She says she did it because she is an "addict". She then started to states she felt foggy, drowsy, and felt short of breath. The nurse at [facility] took note of this and called for her to go to the emergency department. She admitted to having a overdose on benzodiazepine last week. She denies any suicidal or homicidal ideation. Denies chest pain, heart palpitations, abdominal pain, nausea, vomiting. Denies any syncope, loss of consciousness, or seizure. EKG independently interpreted shows sinus rhythm, rate 77 bpm, QTc 450 ms Hgb 9.7, MCV 87.1, sodium 136, creatinine 1.10, AST 72, ALT 36. Urine tox positive for methadone and tricyclic antidepressant T 99.5 F, MI 82, BP 116/74, RR 16, O2 sat 99% on room air ED documentation reviewed. Review of systems: Pertinent positives and negatives as discussed in HPI, a complete review of systems was performed and all other systems are negative. Social history: Tobacco: Vapes daily for the past year Alcohol: Denies recent alcohol use, has history of heavy alcohol abuse Recreational drugs: History of methamphetamine and prescription drug abuse Travel: No recent travel Occupation: Did not obtain Physical examination: Vital signs reviewed General: appears lethargic, no distress, appears at stated age, obese Derm: no unusual rashes/lesions, warm Head: atraumatic, normocephalic, symmetric Eyes: EOMI, no lid lag, anicteric sclera, pupils equal round reactive to light ENT: Nose and ears atraumatic Mouth: no lip lesion, mucus membranes moist Cardiovascular: S1S2 reg, no murmur, positive dorsalis pedis pulse bilateral, no edema Lungs: CTA bilateral, no rhonchi, no rales, no accessory muscle use Abdominal: soft, nontender to palpation, no guarding Ext: muscle strength 5 out of 5 in all 4 extremities grossly, no gross muscle atrophy, no contractures, Neuro: CN II-XI grossly intact, no gross focal neuro deficits Psych: Somewhat lethargic, oriented to self, place, and year, appropriate affect Assessment/Plan: Patient is a 39-year-old female with a PMH of seizure disorder, anxiety, depression, panic disorder, neuropathy presents to the ED for overdose. #. Acute encephalopathy secondary to polypharmacy vs overdose (suspected methadone since urine tox negative for benzodiazepines) Patient with history of narcotic dependence, on methadone Patient states she overdosed on Klonopin and gabapentin UDS positive for methadone and tricyclic antidepressant, negative for benzodiazepine Normal saline at 75 cc/hr Hold home medications for now Narcan 0.2 mg q2m PRN Neurochecks q4h Cardiac monitoring #. Normocytic anemia Hemoglobin 9.7 (unknown baseline), MCV 87.1 Denies active bleeding Continue to monitor with follow-up CBC #. Transaminitis AST 72, ALT 36 has history of heavy alcohol abuse, denies recent alcohol use Continue to monitor with follow-up CMP #. Mild hyponatremia Sodium 136 Continue to monitor with follow-up CMP #. Anxiety/depression Hold anxiety and depression medication for now #. Neuropathy Hold gabapentin for now #. Obesity Patient on Wegovy 0.25 mg SQ q7days for weight loss F: Normal saline at 75 cc/hr E: Replete as needed N: Regular diet A: Patient ambulatory, fall precaution DVT prophylaxis: Lovenox 40 SQ daily The patient is admitted with an anticipated less than 2 midnight stay for evaluation of acute encephalopathy secondary to polypharmacy CODE STATUS: Full Discussed with: Patient Anticipated discharge place: [facility] Past Medical History Past Medical History: Seizure Disorder History of Any Multi-Drug Resistant Organisms: None Reported Past Surgical History: Section Past Psychological History: ADD/ADHD, Anxiety, Bipolar, Depression, Panic Disorder, PTSD Smoking Status: Former smoker Past Alcohol Use History: Abuse, Heavy Past Drug Use History: Methamphetamine, Prescription Drug Abuse - Past Family History Mother Family Medical History: No Reported History Father Family Medical History: Diabetes Mellitus Additional Family Medical History / Comment(s): depression Medications and Allergies Home Medications Medication Instructions Recorded Confirmed Type Benztropine Mesylate [Cogentin] 0.5 mg PO BID 02/23/24 02/23/24 History DULoxetine HCL [Cymbalta] 30 mg PO DAILY 02/23/24 02/23/24 History DULoxetine HCL [Cymbalta] 60 mg PO HS 02/23/24 02/23/24 History Ferrous Sulfate [Iron (65 MG 325 mg PO DAILY 02/23/24 02/23/24 History Elemental)] Gabapentin [Gralise] 600 mg PO TID 02/23/24 02/23/24 History Nicotine 21Mg/24Hr Patch [Habitrol] 1 patch TRANSDERM DAILY 02/23/24 02/23/24 History QUEtiapine FUMARATE [SEROquel] 600 mg PO HS 02/23/24 02/23/24 History Semaglutide [Wegovy] 0.25 mg SQ Q7D 02/23/24 02/23/24 History Topiramate [Topamax] 100 mg PO BID 02/23/24 02/23/24 History cloNIDine HCL [Catapres] 0.1 mg PO TID 02/23/24 02/23/24 History hydrOXYzine pamoate [Vistaril] 25 mg PO Q8H PRN 02/23/24 02/23/24 History Methadone HCl [Methadone Intensol] 155 mg PO DAILY 02/24/24 02/24/24 History Allergies Allergy/AdvReac Type Severity Reaction Status Date / Time codeine Allergy Anaphylaxis Verified 02/29/24 17:45 guaifenesin [From Mucinex] AdvReac Nausea & Verified 02/29/24 17:45 Vomiting & Diarrhea tramadol AdvReac Nausea & Verified 02/29/24 17:45 Vomiting & Diarrhea Physical Exam Vitals: Vital Signs Temp Pulse Resp BP Pulse Ox 02/29/24 21:24 82 16 116/74 99 02/29/24 17:38 99.5 F 102 H 12 114/78 93 L Intake and Output 02/29/24 02/29/24 02/29/24 06:59 14:59 22:59 Other: Weight 77.111 kg Results CBC & Chem 7: 02/29/24 18:59 02/29/24 18:59 Labs: Abnormal Lab Results - Last 24 Hours (Table) 02/29/24 02/29/24 02/29/24 Range/Units 18:59 18:59 19:23 RBC 3.56 L (3.80-5.40) m/uL Hgb 9.7 L (11.4-16.0) gm/dL Hct 31.0 L (34.0-46.0) % RDW 16.7 H (11.5-15.5) % Neutrophils # 7.9 H (1.3-7.7) k/uL Sodium 136 L (137-145) mmol/L Creatinine 1.10 H (0.52-1.04) mg/dL AST 72 H (14-36) U/L ALT 36 H (4-34) U/L Albumin 3.4 L (3.5-5.0) g/dL Urine Methadone Screen Detected H (NotDetected) U Tricyclic Antidepress Detected H (NotDetected)
[2024-02-29 23:17] VITALS: RESP 18
[2024-03-01] MEDS: SODIUM CHLORIDE 0.9% 1,000 ML IV SCH (05:06)
[2024-03-01 07:56] VITALS: BP 105/68; PULSE 91; TEMP 98.2
[2024-03-01] MEDS: ENOXAPARIN 40 MG/0.4 ML SYRINGE SQ SCH (08:39)
[2024-03-01 08:48] LABS: ALT 31 U/L (8-44); AST 53 U/L (13-35); Albumin 3.5 g/dL (3.8-4.9); Alkaline Phosphatase 80 U/L (41-126); BUN/Creat Ratio 14.18 Ratio (12.00-20.00); Blood Urea Nitrogen 15.6 mg/dL (9.0-27.0); Calcium 8.8 mg/dL (8.7-10.3); Carbon Dioxide 24.5 mmol/L (21.6-31.8); Chloride 104 mmol/L (96-109); Globulin 2.7 g/dL (1.6-3.3); Glucose 113 mg/dL (70-110); Potassium 3.3 mmol/L (3.5-5.5); Sodium 139 mmol/L (135-145); Total Bilirubin 0.3 mg/dL (0.3-1.2); Total Protein 6.2 g/dL (6.2-8.2)
[2024-03-01 08:52] LABS: Basophils # (A) 0.04 X 10*3/uL (0.00-0.10); Basophils % (A) 0.5 %; Eosinophils # (A) 0.23 X 10*3/uL (0.04-0.35); Eosinophils % (A) 2.7 %; HCT 30.8 % (37.2-46.3); HGB 9.4 g/dL (12.0-15.0); Lymphocytes # (A) 1.57 X 10*3/uL (0.90-5.00); Lymphocytes % (A) 18.2 %; MCH 26.6 pg (27.0-32.0); MCHC 30.5 g/dL (32.0-37.0); Mean Platelet Volume 10.3 FL (9.5-12.2); Monocytes # (A) 0.55 X 10*3/uL (0.20-1.00); Monocytes % (A) 6.4 %; NRBC Per 100 WBC 0 X 10*3/uL (0.00-0.01); Neutrophils # (A) 6.18 X 10*3/uL (1.80-7.70); Neutrophils % (A) 71.6 %; Platelet Count 271 X 10*3/uL (140-440); RBC 3.54 X 10*6/uL (4.10-5.20); RDW 16.9 % (11.5-14.5); WBC 8.62 X 10*3/uL (4.50-10.00)
[2024-03-01] MEDS: METHADONE 10 MG TAB PO SCH (11:25)
[2024-03-01] MEDS: POTASSIUM CHLORIDE ER 20 MEQ TAB.ER PO STA (11:45)
--- NOTE | 2024-03-01 12:43 | P.DS ---
Providers Date of admission: 02/29/24 21:09 Attending physician: Samreen Chang MD Discharge Diagnosis: 1. Acute encephalopathy secondary to polypharmacy versus overdose, resolved 2. Normocytic anemia 3. Transaminitis 4. Mild hyponatremia 5. Anxiety/depression 6. Neuropathy 7. Obesity 8. Hypokalemia, resolved Hospital Course: 41-year-old female with a PMH of seizure disorder, anxiety, depression, panic disorder, neuropathy presents to the ED for overdose on 02/29/2024. She is a patient at [facility]. She states that morning of 02/29/2024 she took too much of Klonopin and gabapentin and is not sure how much. She says she did it because she is an "addict". She then started to states she felt foggy, drowsy, and felt short of breath. The nurse at [facility] took note of this and called for her to go to the emergency department. She admitted to having a overdose on benzodiazepine last week. She denies any suicidal or homicidal ideation. Denies chest pain, heart palpitations, abdominal pain, nausea, vomiting. Denies any syncope, loss of consciousness, or seizure. EKG independently interpreted shows sinus rhythm, rate 77 bpm, QTc 450 ms. Hgb 9.7, MCV 87.1, sodium 136, creatinine 1.10, AST 72, ALT 36. Urine tox positive for methadone and tricyclic antidepressant. T 99.5 F, RI 82, BP 116/74, RR 16, O2 sat 99% on room air. Patient was seen and examined at bedside this morning. Patient has returned to her baseline mentation. Her BMP for this morning showed potassium level of 3.3. Patient was given potassium chloride 40 mEq p.o. x 1. Otherwise, denies dizziness, chest pain, shortness of breath, abdominal pain, diarrhea or constipation. Patient stable to be discharged. Discharge instruction: -Follow-up with PCP within 1 to 2 days -Resume home medications as directed Vital signs reviewed. Gen: in no apparent distress, resting comfortably in bed Eyes: PERRL, no scleral injection or icterus HENT: normocephalic, atraumatic, good hearing acuity, moist mucous membranes Neck: full range of motion Resp: CTAB, no rales, rhonchi, or wheezes CVS: normal S1 and S2, no murmurs, rubs or gallops, no edema GI: soft, NTTP, ND, no hepatosplenomegaly : no suprapubic tenderness, no CVAT, lal catheter is not present MSK: no clubbing, no cyanosis, no noted contractures of extremities Skin: no noted rashes, petechiae; temperature of skin is appropriate Neuro: moving all extremities without signs of weakness, CN II-XII intact Psych: cooperative, euthymic mood, insight and judgment intact Primary care physician: Stated None Hospital Course: I have seen and evaluated the patient today. Discussed with the resident and agree with the residents finding and plan as documented in the resident's note. Mentation back to baseline. AOx3. Appears anxious to return back to [facility]. One dose of Methadone 40 mg PO ordered to control withdrawal symptoms. Plans for discharge to [facility] today. Patient Condition at Discharge: Stable Plan - Discharge Summary Discharge Rx Participant: Yes New Discharge Prescriptions: Continue DULoxetine HCL [Cymbalta] 60 mg PO HS DULoxetine HCL [Cymbalta] 30 mg PO HS Benztropine Mesylate [Cogentin] 0.5 mg PO BID Methadone HCl [Methadone Intensol] 155 mg PO DAILY Thiamine [Vitamin B-1] 100 mg PO DAILY Multivitamins, Thera [Multivitamin (formulary)] 1 tab PO DAILY Mag Hydrox/Aluminum Hyd/Simeth [Mylanta Maximum Strength Liq] 30 ml PO Q4H PRN PRN Reason: Gi Upset Loperamide HCl [Imodium A-D] 4 mg PO QID PRN PRN Reason: Loose Stool Calcium Phos/D3/Magnesium/Zinc [Artpvcz-Qhm-Qyja-Vitamin D3] 1 tab PO TID PRN PRN Reason: Supplement QUEtiapine FUMARATE [SEROquel] 600 mg PO HS cloNIDine HCL [Catapres] 0.1 mg PO TID Topiramate [Topamax] 100 mg PO BID Acetaminophen [Tylenol] 650 mg PO Q4H PRN PRN Reason: Fever And/ Or Pain Docusate [Colace] 100 mg PO BID PRN PRN Reason: Constipation Chlorpheniramine Maleate [Chlor-Trimeton] 4 mg PO Q4H PRN PRN Reason: Allergy Symptoms Meloxicam [Mobic] 15 mg PO DAILY ondansetron HCL [Zofran] 8 mg PO Q6H PRN PRN Reason: Nausea And Vomiting Discharge Medication List Benztropine Mesylate [Cogentin] 0.5 mg PO BID 02/23/24 [History] DULoxetine HCL [Cymbalta] 30 mg PO HS 02/23/24 [History] DULoxetine HCL [Cymbalta] 60 mg PO HS 02/23/24 [History] QUEtiapine FUMARATE [SEROquel] 600 mg PO HS 02/23/24 [History] Topiramate [Topamax] 100 mg PO BID 02/23/24 [History] cloNIDine HCL [Catapres] 0.1 mg PO TID 02/23/24 [History] Methadone HCl [Methadone Intensol] 155 mg PO DAILY 02/24/24 [History] Acetaminophen [Tylenol] 650 mg PO Q4H PRN 03/01/24 [History] Calcium Phos/D3/Magnesium/Zinc [Gdrmlxy-Eez-Tnse-Vitamin D3] 1 tab PO TID PRN 03/01/24 [History] Chlorpheniramine Maleate [Chlor-Trimeton] 4 mg PO Q4H PRN 03/01/24 [History] Docusate [Colace] 100 mg PO BID PRN 03/01/24 [History] Loperamide HCl [Imodium A-D] 4 mg PO QID PRN 03/01/24 [History] Mag Hydrox/Aluminum Hyd/Simeth [Mylanta Maximum Strength Liq] 30 ml PO Q4H PRN 03/01/24 [History] Meloxicam [Mobic] 15 mg PO DAILY 03/01/24 [History] Multivitamins, Thera [Multivitamin (formulary)] 1 tab PO DAILY 03/01/24 [History] Thiamine [Vitamin B-1] 100 mg PO DAILY 03/01/24 [History] ondansetron HCL [Zofran] 8 mg PO Q6H PRN 03/01/24 [History] Follow up Appointment(s)/Referral(s): None,Stated [Primary Care Provider] - 1-2 days Discharge Disposition: HOME SELF-CARE
== END 2024-03-01 12:50 | disposition home or self-care (01) ==
LOC: EC 17:32 → 6NMEDSUR 21:09
PROVIDERS: ADMIT Internal Medicine; ATTEND Internal Medicine
DX: G93.40 Encephalopathy, unspecified (principal); F31.9 Bipolar disorder, unspecified; F41.0 Panic disorder [episodic paroxysmal anxiety]; G62.9 Polyneuropathy, unspecified; E87.1 Hypo-osmolality and hyponatremia; E87.6 Hypokalemia; D64.9 Anemia, unspecified; R74.01 Elevation of levels of liver transaminase levels; E66.9 Obesity, unspecified; Z68.30 Body mass index [BMI] 30.0-30.9, adult; Z87.891 Personal history of nicotine dependence; Z79.899 Other long term (current) drug therapy; Z88.5 Allergy status to narcotic agent
CPT/HCPCS: 36415; 80053; 80306; 80320; 83735; 85025; 93005; 96372; 99285